=== PATIENT | male | born 1980 | race African-American/Black ===

== ENCOUNTER 2020-03-17 15:13 | Outpatient (CLI) | payer OTHER ==
--- NOTE | 2020-03-17 16:53 | RAD ---
THORACIC SPINE TWO VIEW: 03/17/20 HISTORY: Disability exam. COMPARISON: Thoracic spine MRI from 2016. FINDINGS: the posterior ribs are intact. There is no acute fracture of the thoracic spine. There is anterior we dging, chronic, of the mid thoracic vertebral bodies involving T7, T8 and T9, chronic in nature with associated degenerative space height loss. Focal kyphosis at this level, unchanged. IMPRESSION: Moderate spondylosis mid and lower thoracic spine. No acute fracture. Findings relatively similar to the thoracic spine MRI of 03/16/16. POS: OFF
== END 2020-03-17 15:14 | disposition home or self-care (01) ==
LOC: BICRAD 15:13
PROVIDERS: ATTEND Internal Medicine
DX: Z02.71 Encounter for disability determination (principal); M47.814 Spondylosis without myelopathy or radiculopathy, thoracic region
CPT/HCPCS: 72072

== ENCOUNTER 2020-11-16 09:50 | Outpatient (CLI) | payer OTHER | END 2020-11-16 09:51 | disposition home or self-care (01) | LOC: RAD 09:50 | PROVIDERS: ATTEND Psychiatry & Neurology Neurology | DX: M51.36 Other intervertebral disc degeneration, lumbar region (principal) | CPT/HCPCS: 72100 ==